=== PATIENT | female | born 1955 | race Caucasian/White ===

== ENCOUNTER 2020-09-18 03:18 | Emergency (ER) | payer OTHER ==
[~2020-09-18] VITALS: Ht 165.1 cm; Wt 54.4 kg
[~2020-09-18 03:18] MED LIST: Col-Rite100 MG PO; DIPH50 PO; IBUP600 PO; LORA.5 PO; OXYACE5T PO
== END 2020-09-18 04:15 | disposition home or self-care (01) ==
LOC: ER 03:18
DX: R07.81 Pleurodynia (principal); M25.511 Pain in right shoulder; M79.644 Pain in right finger(s); F17.200 Nicotine dependence, unspecified, uncomplicated; Z88.2 Allergy status to sulfonamides; Z88.8 Allergy status to other drugs, medicaments and biological substances; Z88.6 Allergy status to analgesic agent; Z79.899 Other long term (current) drug therapy; Y09 Assault by unspecified means
CPT/HCPCS: 99283; A9270